=== PATIENT | female | born 1940 | race Caucasian/White ===

== ENCOUNTER 2020-07-12 08:34 | Day surgery (SDC) | payer MEDICARE ==
[~2020-07-12 08:34] MED LIST: Acetaminophen 325 MG Tab PO PRN; Cataract Ophth Solution EYELF ONE; Moxifloxacin 0.5% Ophth Soln 3 ML Bottle EYELF ONE; Ondansetron 4 MG/2 ML SDV IVPUSH PRN; Phenylephrine 10% Ophth Soln 5 ML Bot EYELF ONE; Phenylephrine 10% Ophth Soln 5 ML Bot EYELF PRN; Povidone-Iodine 5% Sterile Ophth Soln 30 ML Bottle EYELF ONE; Proparacaine 0.5% Ophth Soln 15 ML Bottle EYELF ONE; Sodium Chloride 0.9% 10 ML Syringe FLUSH PRN; Timolol Maleate 0.5% Ophth Soln 5 ML Bottle EYELF ONE; Tropicamide 1% Ophth Soln 15 ML Bottle EYELF ONE
[2020-07-12] MEDS ORDERED: Dexamethasone 4 MG/ML SDV IV ONE (08:35)
[2020-07-12] MEDS ORDERED: Sodium Chloride 0.9% 10 ML Syringe IV ONE (08:35)
[2020-07-12] MEDS ORDERED: Midazolam 1 MG/ML 2 ML SDV IV ONE (08:35)
[2020-07-12] MEDS ORDERED: Tetracaine HCl/PF 0.5% 4 ML Bottle EYELF ONE (09:38)
[2020-07-12] MEDS ORDERED: Lidocaine 1% 30 ML SDV ONE (09:38)
[2020-07-12] MEDS ORDERED: Povidone-Iodine 5% Sterile Ophth Soln 30 ML Bottle EYELF ONE (09:38)
[2020-07-12] MEDS ORDERED: Diclofenac Sodium 0.1% Ophth Soln 5 ML Bottle EYELF ONE (09:39)
[2020-07-12] MEDS ORDERED: Apraclonidine 0.5% Ophth Soln 5 ML Bot EYELF ONE (09:39)
[2020-07-12] MEDS ORDERED: Vancomycin 500 MG SDV EYELF ONE (09:40)
[2020-07-12] MEDS ORDERED: Dexamethasone 4 MG/ML SDV IOCULAR ONE (09:40)
[2020-07-12] MEDS ORDERED: Dexamethasone/Neomycin/Polymyxin B Ophth Oint 3.5 GM Tube EYELF ONE (09:40)
[2020-07-12] MEDS ORDERED: Balanced Salt Solution Ophth Irrig 500 ML Bottle IOCULAR ONE (09:40)
[2020-07-12] MEDS ORDERED: Chondroitin Sulfate/Hyaluronate Sodium Ophth Inj 0.75 ML Syringe EYELF ONE (09:40)
--- NOTE | 2020-07-12 11:58 | OR ---
DATE: 07/12/2020 PREOPERATIVE DIAGNOSIS: Visually significant mixed cataract, left eye. POSTOPERATIVE DIAGNOSIS: Visually significant mixed cataract, left eye. PROCEDURE: Extracapsular cataract extraction with intraocular lens implant, left eye. ANESTHESIA: Topical/local MAC. COMPLICATIONS: None. INDICATION: Ms. Young was seen in the clinic with complaints of blurred vision. Examination revealed visually significant mixed cataract. I explained options, offered cataract surgery, and I explained risks, including, but not limited to, infection, retinal detachment, loss of vision, need for additional surgery, and risks associated with anesthesia. We discussed implant options. She has requested a monofocal implant. She understands that she will likely require glasses for some activities following surgery. OPERATIVE DESCRIPTION: After informed consent was obtained and the risks, benefits, and alternatives were explained, the patient was brought to the operative suite and topical anesthesia was administered. The patient was then prepped and draped in the sterile fashion and attention was placed on the left eye. A sterile lid speculum was placed into the left eye to allow operative exposure. A full-thickness paracentesis was made in the temporal portion of the operative eye. Preservative-free lidocaine 0.1 mL was injected into the anterior chamber followed by viscoelastic. A full-thickness corneal incision was then made into the anterior chamber. A bent needle cystotome was used to create a small ritu in the anterior capsule. The capsulorrhexis forceps was then used to create a 360-degree curvilinear capsulorrhexis. The nucleus was then removed using a phacoemulsification handpiece and the remaining cortical material was then removed with irrigation and aspiration handpiece. Following removal of the cortical material, the capsular bag was then inspected and noted to be free of any holes or tears. Viscoelastic was then injected into the capsular bag and the intraocular lens was inserted into the capsular bag. The viscoelastic material was then removed from both the anterior and posterior chambers and from behind the IOL. The lens and capsular bag were then reinspected. The IOL was well centered and the capsular bag intact. The wound and paracentesis sites were inspected and hydrated with balanced saline solution. Both were found to be self- sealing. The intraocular pressure was assessed digitally and found to be within normal range. A good red reflex was noted at the completion of the procedure. No complications occurred during the operation. At the completion of the procedure, Maxitrol, Voltaren, and Iopidine drops were placed into the operative eye. A sterile eye shield was placed over the operative eye and the patient was transported to the postoperative recovery area having tolerated the procedure well. Postoperative instructions were given along with a postoperative appointment. The patient was advised to call with any questions or concerns. [facility] /[id number]
== END 2020-07-12 10:51 | disposition home or self-care (01) ==
LOC: DL.SDS 08:34
PROVIDERS: ATTEND Ophthalmology
DX: H25.813 Combined forms of age-related cataract, bilateral (principal); I10 Essential (primary) hypertension; F32.9 Major depressive disorder, single episode, unspecified; F41.9 Anxiety disorder, unspecified; F17.210 Nicotine dependence, cigarettes, uncomplicated; Z79.899 Other long term (current) drug therapy; Z88.8 Allergy status to other drugs, medicaments and biological substances; Z79.82 Long term (current) use of aspirin; Z79.890 Hormone replacement therapy
CPT/HCPCS: 00142; 66984; A9270; J1100; J2001; J2250; J3370; V2632

== ENCOUNTER 2020-07-19 06:58 | Day surgery (SDC) | payer MEDICARE ==
[2020-07-19] MEDS ORDERED: Dexamethasone 4 MG/ML SDV IV ONE (06:59)
[2020-07-19] MEDS ORDERED: Sodium Chloride 0.9% 10 ML Syringe IV ONE (06:59)
[2020-07-19] MEDS ORDERED: Midazolam 1 MG/ML 2 ML SDV IV ONE (06:59)
[2020-07-19] MEDS ORDERED: Tropicamide 1% Ophth Soln 15 ML Bottle EYERT ONE (07:00)
[2020-07-19] MEDS ORDERED: Timolol Maleate 0.5% Ophth Soln 5 ML Bottle EYERT ONE (07:00)
[2020-07-19] MEDS ORDERED: Phenylephrine 10% Ophth Soln 5 ML Bot EYERT ONE (07:00)
[2020-07-19] MEDS ORDERED: Ondansetron 4 MG/2 ML SDV IVPUSH PRN (07:00)
[2020-07-19] MEDS ORDERED: Acetaminophen 325 MG Tab PO PRN (07:00)
[2020-07-19] MEDS ORDERED: Povidone-Iodine 5% Sterile Ophth Soln 30 ML Bottle EYERT ONE ×2 (07:00→08:24)
[2020-07-19] MEDS ORDERED: Cataract Ophth Solution EYERT ONE (07:00)
[2020-07-19] MEDS ORDERED: Phenylephrine 10% Ophth Soln 5 ML Bot EYERT PRN (07:00)
[2020-07-19] MEDS ORDERED: Sodium Chloride 0.9% 10 ML Syringe FLUSH PRN (07:00)
[2020-07-19] MEDS ORDERED: Moxifloxacin 0.5% Ophth Soln 3 ML Bottle EYERT ONE (07:00)
[2020-07-19] MEDS ORDERED: Proparacaine 0.5% Ophth Soln 15 ML Bottle EYERT ONE (07:00)
[2020-07-19] MEDS ORDERED: Tetracaine HCl/PF 0.5% 4 ML Bottle EYERT ONE (08:23)
[2020-07-19] MEDS ORDERED: Diclofenac Sodium 0.1% Ophth Soln 5 ML Bottle EYERT ONE (08:24)
[2020-07-19] MEDS ORDERED: Lidocaine 1% 30 ML SDV ONE (08:24)
[2020-07-19] MEDS ORDERED: Apraclonidine 0.5% Ophth Soln 5 ML Bot EYERT ONE (08:24)
[2020-07-19] MEDS ORDERED: Dexamethasone/Neomycin/Polymyxin B Ophth Oint 3.5 GM Tube EYERT ONE (08:24)
[2020-07-19] MEDS ORDERED: Chondroitin Sulfate/Hyaluronate Sodium Ophth Inj 0.75 ML Syringe EYERT ONE (08:25)
[2020-07-19] MEDS ORDERED: Balanced Salt Solution Ophth Irrig 500 ML Bottle IOCULAR ONE (08:25)
[2020-07-19] MEDS ORDERED: Vancomycin 500 MG SDV EYERT ONE (08:25)
--- NOTE | 2020-07-20 08:41 | OR ---
DATE: 07/19/2020 PREOPERATIVE DIAGNOSIS: Visually significant mixed cataract, right eye. POSTOPERATIVE DIAGNOSIS: Visually significant mixed cataract, right eye. PROCEDURE: Extracapsular cataract extraction with intraocular lens implant, right eye. ANESTHESIA: Topical/local MAC. COMPLICATIONS: None. INDICATION: Ms. Young was seen in the clinic. She has complained of a slow progressive decrease in vision. Examination revealed visually significant cataract. I explained options, offered cataract surgery, and I explained risks, including, but not limited to, infection, retinal detachment, loss of vision, need for additional surgery, and risks associated with anesthesia, amongst others. We discussed implant options. She has requested a monofocal implant. She is comfortable wearing glasses following surgery if necessary. OPERATIVE DESCRIPTION: After informed consent was obtained and the risks, benefits, and alternatives were explained, the patient was brought to the operative suite and topical anesthesia was administered. The patient was then prepped and draped in the sterile fashion and attention was placed on the right eye. A sterile lid speculum was placed into the right eye to allow operative exposure. A full-thickness paracentesis was made in the temporal portion of the operative eye. Preservative-free lidocaine 0.1 mL was injected into the anterior chamber followed by viscoelastic. A full-thickness corneal incision was then made into the anterior chamber. A bent needle cystotome was used to create a small ritu in the anterior capsule. The capsulorrhexis forceps was then used to create a 360-degree curvilinear capsulorrhexis. The nucleus was then removed using a phacoemulsification handpiece and the remaining cortical material was then removed with irrigation and aspiration handpiece. Following removal of the cortical material, the capsular bag was then inspected and noted to be free of any holes or tears. Viscoelastic was then injected into the capsular bag and the intraocular lens was inserted into the capsular bag. The viscoelastic material was then removed from both the anterior and posterior chambers and from behind the IOL. The lens and capsular bag were then reinspected. The IOL was well centered and the capsular bag intact. The wound and paracentesis sites were inspected and hydrated with balanced saline solution. Both were found to be self- sealing. The intraocular pressure was assessed digitally and found to be within normal range. A good red reflex was noted at the completion of the procedure. No complications occurred during the operation. At the completion of the procedure, Maxitrol, Voltaren, and Iopidine drops were placed into the operative eye. A sterile eye shield was placed over the operative eye and the patient was transported to the postoperative recovery area having tolerated the procedure well. Postoperative instructions were given along with a postoperative appointment. The patient was advised to call with any questions or concerns. [facility] /[id number]
== END 2020-07-19 09:40 | disposition home or self-care (01) ==
LOC: DL.SDS 06:58
PROVIDERS: ATTEND Ophthalmology
DX: H25.811 Combined forms of age-related cataract, right eye (principal); I10 Essential (primary) hypertension; F32.9 Major depressive disorder, single episode, unspecified; F41.9 Anxiety disorder, unspecified; F17.210 Nicotine dependence, cigarettes, uncomplicated; Z79.899 Other long term (current) drug therapy; Z88.8 Allergy status to other drugs, medicaments and biological substances; Z79.890 Hormone replacement therapy; Z79.82 Long term (current) use of aspirin
CPT/HCPCS: A9270-GY; J1100; J2001; J2250; J3370; V2632

== ENCOUNTER 2022-01-10 16:14 | Emergency (ER) | payer MEDICARE, OTHER ==
[2022-01-10 18:34] LABS: ANION GAP 10.9 mEq/L (7-13); CHLORIDE,CL 100 mmol/L (98-107); SODIUM,NA 137 mmol/L (136-145)
== END 2022-01-10 21:10 | disposition home or self-care (01) ==
LOC: DL.ED 16:14
DX: G20 Parkinson's disease (principal); T42.8X5A Adverse effect of antiparkinsonism drugs and other central muscle-tone depressants, initial encounter; I10 Essential (primary) hypertension; E03.9 Hypothyroidism, unspecified; Z88.8 Allergy status to other drugs, medicaments and biological substances; Z79.82 Long term (current) use of aspirin; Z79.899 Other long term (current) drug therapy; Z20.822 Contact with and (suspected) exposure to COVID-19
CPT/HCPCS: 36415; 70450; 71045; 80053; 81001; 83605; 83880; 84484; 85025; 85610; 87040; 93005; 99284; U0002; 93010

== ENCOUNTER 2022-01-18 12:32 | Emergency (ER) | payer MEDICARE, OTHER ==
[2022-01-18 13:20] LABS: AMPHETAMINES,URINE NEGATIVE (NEGATIVE); BARBITURATES,URINE NEGATIVE (NEGATIVE); BENZODIAZEPINE,URINE POSITIVE (NEGATIVE); MDMA (ECSTASY), URINE NEGATIVE (NEGATIVE); METHADONE,URINE NEGATIVE (NEGATIVE); METHAMPHETAMINES,URINE NEGATIVE (NEGATIVE); OPIATES,URINE NEGATIVE (NEGATIVE); OXYCODONE,URINE NEGATIVE (NEGATIVE); PHENCYCLIDINE,URINE NEGATIVE (NEGATIVE); TCA,URINE NEGATIVE (NEGATIVE)
[2022-01-18 13:43] LABS: CORONAVIRUS COVID-19 NAA NEGATIVE (NEGATIVE)
[2022-01-18 14:00] LABS: CHLORIDE,CL 101 mmol/L (98-107); SODIUM,NA 138 mmol/L (136-145)
[2022-01-18] MEDS: Sulfamethoxazole/Trimethoprim 800-160 MG Tab PO ONE (15:50)
== END 2022-01-18 16:15 | disposition home or self-care (01) ==
LOC: DL.ED 12:32
DX: G20 Parkinson's disease (principal); N30.01 Acute cystitis with hematuria; T44.995A Adverse effect of other drug primarily affecting the autonomic nervous system, initial encounter; I10 Essential (primary) hypertension; E03.9 Hypothyroidism, unspecified; Z88.8 Allergy status to other drugs, medicaments and biological substances; Z79.82 Long term (current) use of aspirin; Z79.899 Other long term (current) drug therapy; Z20.822 Contact with and (suspected) exposure to COVID-19
CPT/HCPCS: 0240U; 36415; 80053; 80305; 80307; 81001; 83605; 83735; 84484; 85025; 86140; 93005; 93010; 99284; A9270

== ENCOUNTER 2022-02-04 10:23 | Emergency (ER) | payer MEDICARE, OTHER ==
[2022-02-04 11:46] LABS: ANION GAP 11.6 mEq/L (7-13); CHLORIDE,CL 104 mmol/L (98-107); ESTIMATED GFR > 60; SODIUM,NA 137 mmol/L (136-145)
[2022-02-04] MEDS ORDERED: Iopamidol 612 MG/ML 100 ML Bottle IVPUSH ONE (11:47)
[2022-02-04] MEDS ORDERED: cefTRIAXone 1 GM in Sodium Chloride 0.9% 50 ML IV ONE (13:28)
[2022-02-04] MEDS ORDERED: Ketorolac 30 MG/ML SDV IVPUSH ONE (13:28)
== END 2022-02-04 14:22 | disposition home or self-care (01) ==
LOC: DL.ED 10:23
DX: K11.20 Sialoadenitis, unspecified (principal); I10 Essential (primary) hypertension; E03.9 Hypothyroidism, unspecified; Z88.8 Allergy status to other drugs, medicaments and biological substances; Z79.82 Long term (current) use of aspirin; Z79.899 Other long term (current) drug therapy
CPT/HCPCS: 36415; 70491; 80053; 83605; 85025; 87040; 96365; 96375; 99283; 99284; J0696; J1885; Q9967

== ENCOUNTER 2025-05-03 09:13 | Emergency (ER) | payer MEDICARE, OTHER ==
[2025-05-03] MEDS: fentaNYL 100 MCG/2 ML SDV IVPUSH PRN (09:18)
[2025-05-03] MEDS: Ketorolac 30 MG/ML SDV IVPUSH ONE (09:18)
[2025-05-03 09:19] LABS: BASOPHILS PERCENT AUTO 0.7 % (0.0-1.0); EOSINOPHILS PERCENT AUTO 1.6 % (1.0-3.0); HEMATOCRIT 40.8 % (37.0-47.0); LYMPHOCYTES PERCENT AUTO 19.4 % (20.5-50.1); MEAN CORPUSCULAR HEMOGLOBIN 31.7 pg (27.0-34.0); MEAN CORPUSCULAR HGB CONC 31.9 g/dL (33.0-35.0); MEAN CORPUSCULAR VOLUME 99.5 fL (80-100); NEUTROPHILS PERCENT AUTO 70.3 % (42.2-75.2); PLATELET COUNT,PLT 204 10^3/uL (150-450); WHITE BLOOD CELL COUNT,WBC 7.5 10^3/uL (5.0-10.0)
[2025-05-03 09:42] LABS: A/G RATIO 0.76; ALANINE AMINOTRANSFERASE,ALT 24 U/L (14-59); ALBUMIN 2.8 g/dL (3.4-5.0); ALKALINE PHOSPHATASE 92 U/L (46-116); ANION GAP 9.7 mEq/L (7-13); ASPARTATE AMNIOTRANSFERASE,AST 13 U/L (15-37); BILIRUBIN TOTAL 0.7 mg/dL (0.2-1.0); BLOOD UREA NITROGEN,BUN 29 mg/dL (7-18); BUN/CREATININE RATIO 16.8 (No establ ref range); CARBON DIOXIDE,CO2 32 mmol/L (21-32); CHLORIDE,CL 104 mmol/L (98-107); CREATININE 1.73 mg/dL (0.55-1.02); ESTIMATED GFR 29 mL/min (>=60); GLUCOSE RANDOM 89 mg/dL (70-99); MAGNESIUM 2.2 mg/dL (1.8-2.4); POTASSIUM,K 4.7 mmol/L (3.5-5.1); PROTEIN TOTAL,TP 6.5 g/dL (6.4-8.2); SODIUM,NA 141 mmol/L (136-145)
== END 2025-05-03 11:10 ==
LOC: DL.ED 09:13
DX: S72.002A Fracture of unspecified part of neck of left femur, initial encounter for closed fracture (principal); I10 Essential (primary) hypertension; E03.9 Hypothyroidism, unspecified; Z88.8 Allergy status to other drugs, medicaments and biological substances; Z79.82 Long term (current) use of aspirin; Z79.890 Hormone replacement therapy; Z79.899 Other long term (current) drug therapy; W19.XXXA Unspecified fall, initial encounter; Y92.009 Unspecified place in unspecified non-institutional (private) residence as the place of occurrence of the external cause
CPT/HCPCS: 36415; 72170; 80053; 83735; 84484; 85025; 96374; 96375; 99284; 99285-25; J1885; J3010

== ENCOUNTER 2025-05-06 10:15 | Inpatient (IN) | payer MEDICARE, OTHER ==
[2025-05-06 17:20] LABS: BASOPHILS PERCENT AUTO 0.4 % (0.0-1.0); EOSINOPHILS PERCENT AUTO 1.9 % (1.0-3.0); LYMPHOCYTES PERCENT AUTO 13.9 % (20.5-50.1); MONOCYTES PERCENT AUTO 10.3 % (2-8); NEUTROPHILS PERCENT AUTO 73.5 % (42.2-75.2); PLATELET COUNT,PLT 198 10^3/uL (150-450); RED BLOOD CELL COUNT 3.16 10^6/uL (4.2-5.4); WHITE BLOOD CELL COUNT,WBC 10.3 10^3/uL (5.0-10.0)
[2025-05-06 17:43] LABS: BLOOD UREA NITROGEN,BUN 25.0 mg/dL (7-18); CARBON DIOXIDE,CO2 30.0 mmol/L (21-32); CHLORIDE,CL 102.0 mmol/L (98-107); CREATININE 1.15 mg/dL (0.55-1.02); EST CRCL DRUG DOSING (CG) 29.59 mL/min; GLUCOSE RANDOM 100.0 mg/dL (70-99); PHOSPHORUS 2.7 mg/dL (2.6-4.7); POTASSIUM,K 4.6 mmol/L (3.5-5.1); SODIUM,NA 138.0 mmol/L (136-145)
[2025-05-06 17:44] LABS: ESTIMATED GFR 47.0 mL/min (>=60)
[2025-05-06 17:56] LABS: INR 0.9 (0.9-1.2)
[2025-05-06 18:54] LABS: FOLIC ACID 4.8 ng/mL (8.6-58.9); T4 FREE 1.51 ng/dL (0.76-1.46); TSH ULTRASENSITIVE 3.3 uIU/mL (0.36-3.74)
[2025-05-06] MEDS ORDERED: VENLAFAXINE HCL 50 MG PO SCH (21:00)
[2025-05-07] MEDS: Tiotropium Bromide 4 GM Inhalation Spray (2.5mcg/1 dose; 10 doses) INH SCH (07:19)
[2025-05-07] MEDS: Formoterol/Mometasone 100-5 MCG 8.8 GM Inhaler INH SCH (07:20)
[2025-05-07] MEDS: buPROPion 150 MG Tab.ER PO SCH (08:41)
[2025-05-07] MEDS: Vitamin B Complex Cap PO SCH (08:41)
[2025-05-07] MEDS: Venlafaxine 37.5 MG Cap.ER PO SCH (08:45)
[2025-05-07] MEDS: Cholecalciferol (Vitamin D3) 25 MCG Tab PO SCH (08:46)
[2025-05-07] MEDS ORDERED: MEMANTINE HCL 21 MG PO SCH (09:00)
[2025-05-07] MEDS: Lactulose Soln 10 GM/15 ML 30 ML UD Cup PO ONE (11:56)
[2025-05-08 06:23] LABS: BASOPHILS PERCENT AUTO 0.4 % (0.0-1.0); EOSINOPHILS PERCENT AUTO 2.0 % (1.0-3.0); LYMPHOCYTES PERCENT AUTO 12.4 % (20.5-50.1); MONOCYTES PERCENT AUTO 12.0 % (2-8); NEUTROPHILS PERCENT AUTO 73.2 % (42.2-75.2); PLATELET COUNT,PLT 195 10^3/uL (150-450); RED BLOOD CELL COUNT 3.15 10^6/uL (4.2-5.4); WHITE BLOOD CELL COUNT,WBC 8.5 10^3/uL (5.0-10.0)
[2025-05-08 06:42] LABS: BLOOD UREA NITROGEN,BUN 27.0 mg/dL (7-18); CARBON DIOXIDE,CO2 31.0 mmol/L (21-32); CHLORIDE,CL 103.0 mmol/L (98-107); CREATININE 1.45 mg/dL (0.55-1.02); EST CRCL DRUG DOSING (CG) 23.46 mL/min; GLUCOSE RANDOM 102.0 mg/dL (70-99); POTASSIUM,K 4.3 mmol/L (3.5-5.1); SODIUM,NA 139.0 mmol/L (136-145)
[2025-05-08 06:43] LABS: ESTIMATED GFR 35.0 mL/min (>=60)
[2025-05-08] MEDS: Furosemide 40 MG/4 ML VIAL IVPUSH ONE (09:04)
[2025-05-08 09:43] LABS: LACTIC ACID 1.2 mmol/L (0.4-2.0)
[2025-05-08] MEDS: Lactulose Soln 10 GM/15 ML 30 ML UD Cup PO ONE (11:16)
[2025-05-08] MEDS: Iopamidol 755 Mg/ML 100 ML Bottle IVPUSH ONE (18:21)
[2025-05-09 06:42] LABS: BASOPHILS PERCENT AUTO 0.1 % (0.0-1.0); EOSINOPHILS PERCENT AUTO 1.0 % (1.0-3.0); LYMPHOCYTES PERCENT AUTO 9.4 % (20.5-50.1); MONOCYTES PERCENT AUTO 15.3 % (2-8); NEUTROPHILS PERCENT AUTO 74.2 % (42.2-75.2); PLATELET COUNT,PLT 200 10^3/uL (150-450); RED BLOOD CELL COUNT 3.21 10^6/uL (4.2-5.4); WHITE BLOOD CELL COUNT,WBC 9.2 10^3/uL (5.0-10.0)
[2025-05-09 06:49] LABS: BLOOD UREA NITROGEN,BUN 27.0 mg/dL (7-18); CARBON DIOXIDE,CO2 29.0 mmol/L (21-32); CHLORIDE,CL 102.0 mmol/L (98-107); CREATININE 1.6 mg/dL (0.55-1.02); EST CRCL DRUG DOSING (CG) 21.26 mL/min; GLUCOSE RANDOM 99.0 mg/dL (70-99); POTASSIUM,K 4.3 mmol/L (3.5-5.1); SODIUM,NA 140.0 mmol/L (136-145)
[2025-05-09 06:52] LABS: ESTIMATED GFR 31.0 mL/min (>=60)
[2025-05-09] MEDS: Omeprazole 20 MG Cap.CR PO SCH (15:11)
[2025-05-15] MEDS: Acetaminophen/HYDROcodone 325-5 MG Tab PO PRN (12:01)
[2025-05-16 06:44] LABS: PLATELET COUNT,PLT 388 10^3/uL (150-450); RED BLOOD CELL COUNT 2.78 10^6/uL (4.2-5.4); WHITE BLOOD CELL COUNT,WBC 10.0 10^3/uL (5.0-10.0)
[2025-05-16 06:52] LABS: LYMPHOCYTES PERCENT AUTO 10.9 % (20.5-50.1); NEUTROPHILS PERCENT AUTO 79.7 % (42.2-75.2)
[2025-05-16 06:53] LABS: BASOPHILS PERCENT AUTO 0.4 % (0.0-1.0); EOSINOPHILS PERCENT AUTO 2.0 % (1.0-3.0); MONOCYTES PERCENT AUTO 7.0 % (2-8)
[2025-05-16 07:28] LABS: ALANINE AMINOTRANSFERASE,ALT 17.0 U/L (14-59); ASPARTATE AMNIOTRANSFERASE,AST 17.0 U/L (15-37); BILIRUBIN TOTAL 0.5 mg/dL (0.2-1.0); BLOOD UREA NITROGEN,BUN 24.0 mg/dL (7-18); CARBON DIOXIDE,CO2 31.0 mmol/L (21-32); CHLORIDE,CL 105.0 mmol/L (98-107); CREATININE 1.43 mg/dL (0.55-1.02); EST CRCL DRUG DOSING (CG) 23.79 mL/min; GLUCOSE RANDOM 89.0 mg/dL (70-99); POTASSIUM,K 3.8 mmol/L (3.5-5.1); PROTEIN TOTAL,TP 5.8 g/dL (6.4-8.2); SODIUM,NA 142.0 mmol/L (136-145)
[2025-05-16 07:29] LABS: A/G RATIO 0.53; BAND PERCENT MAN 2 %; EOSINOPHILS PERCENT MAN 2 % (1-3); ESTIMATED GFR 36.0 mL/min (>=60); LYMPHOCYTES PERCENT MAN 10 % (20-50); MONOCYTES PERCENT MAN 6 % (2-8); SEG NEUTROPHILS PERCENT MAN 80 % (42-75)
[2025-05-19 20:20] LABS: A/G RATIO 0.54; ALANINE AMINOTRANSFERASE,ALT 8.0 U/L (14-59); ASPARTATE AMNIOTRANSFERASE,AST 13.0 U/L (15-37); BILIRUBIN TOTAL 0.4 mg/dL (0.2-1.0); BLOOD UREA NITROGEN,BUN 29.0 mg/dL (7-18); CARBON DIOXIDE,CO2 31.0 mmol/L (21-32); CHLORIDE,CL 106.0 mmol/L (98-107); CREATININE 1.51 mg/dL (0.55-1.02); EST CRCL DRUG DOSING (CG) 22.53 mL/min; ESTIMATED GFR 34.0 mL/min (>=60); GLUCOSE RANDOM 125.0 mg/dL (70-99); POTASSIUM,K 3.9 mmol/L (3.5-5.1); PROTEIN TOTAL,TP 6.0 g/dL (6.4-8.2); SODIUM,NA 143.0 mmol/L (136-145)
[2025-05-23 06:38] LABS: BASOPHILS PERCENT AUTO 0.6 % (0.0-1.0); EOSINOPHILS PERCENT AUTO 2.9 % (1.0-3.0); LYMPHOCYTES PERCENT AUTO 16.6 % (20.5-50.1); MONOCYTES PERCENT AUTO 9.5 % (2-8); NEUTROPHILS PERCENT AUTO 70.4 % (42.2-75.2); PLATELET COUNT,PLT 435 10^3/uL (150-450); RED BLOOD CELL COUNT 3.11 10^6/uL (4.2-5.4); WHITE BLOOD CELL COUNT,WBC 6.9 10^3/uL (5.0-10.0)
[2025-05-23 07:00] LABS: ALANINE AMINOTRANSFERASE,ALT 10.0 U/L (14-59); ASPARTATE AMNIOTRANSFERASE,AST 12.0 U/L (15-37); BILIRUBIN TOTAL 0.4 mg/dL (0.2-1.0); BLOOD UREA NITROGEN,BUN 20.0 mg/dL (7-18); CARBON DIOXIDE,CO2 30.0 mmol/L (21-32); CHLORIDE,CL 108.0 mmol/L (98-107); CREATININE 1.42 mg/dL (0.55-1.02); EST CRCL DRUG DOSING (CG) 23.96 mL/min; GLUCOSE RANDOM 84.0 mg/dL (70-99); POTASSIUM,K 4.4 mmol/L (3.5-5.1); PROTEIN TOTAL,TP 5.9 g/dL (6.4-8.2); SODIUM,NA 143.0 mmol/L (136-145)
[2025-05-23 07:09] LABS: A/G RATIO 0.59; ESTIMATED GFR 36.0 mL/min (>=60)
== END 2025-05-24 10:42 | DRG 947 ==
LOC: DL.MS 15:16
PROVIDERS: ADMIT Internal Medicine; ATTEND Internal Medicine
DX: R53.81 Other malaise (principal); J69.0 Pneumonitis due to inhalation of food and vomit; N18.4 Chronic kidney disease, stage 4 (severe); I13.0 Hypertensive heart and chronic kidney disease with heart failure and stage 1 through stage 4 chronic kidney disease, or unspecified chronic kidney disease; E44.0 Moderate protein-calorie malnutrition; G20.A1 Parkinson's disease without dyskinesia, without mention of fluctuations; I48.91 Unspecified atrial fibrillation; F41.9 Anxiety disorder, unspecified; I50.9 Heart failure, unspecified; J44.9 Chronic obstructive pulmonary disease, unspecified; M81.0 Age-related osteoporosis without current pathological fracture; F43.10 Post-traumatic stress disorder, unspecified; E03.9 Hypothyroidism, unspecified; K59.09 Other constipation; G89.29 Other chronic pain; Z96.642 Presence of left artificial hip joint; F32.9 Major depressive disorder, single episode, unspecified; G47.00 Insomnia, unspecified; Z88.8 Allergy status to other drugs, medicaments and biological substances; Z79.82 Long term (current) use of aspirin; Z85.818 Personal history of malignant neoplasm of other sites of lip, oral cavity, and pharynx; Z98.49 Cataract extraction status, unspecified eye; Z90.89 Acquired absence of other organs; Z91.81 History of falling; Z68.22 Body mass index [BMI] 22.0-22.9, adult; Z79.899 Other long term (current) drug therapy; Z79.890 Hormone replacement therapy
CPT/HCPCS: 36415; 71045; 71275; 80048; 80053; 82607; 82746; 83605; 83735; 83880; 84100; 84145; 84439; 84443; 84484; 85025; 85610; 87070; 87186; 87205; 93005; 94060; 94664; 97110-GO; 97110-GP; 97161-GP; 97165-GO; 97530-GO; 97530-GP; 97535-GO; A9270-GY; J1650; J1920; J1938; J2543; J3490; Q9967; U0002

== ENCOUNTER 2025-06-02 06:20 | Inpatient (IN) | payer MEDICARE, OTHER ==
[2025-06-02] MEDS ORDERED: Sodium Chloride 0.9% 10 ML Syringe FLUSH PRN (06:23)
[2025-06-02 06:48] LABS: BASOPHILS PERCENT AUTO 0.2 % (0.0-1.0); EOSINOPHILS PERCENT AUTO 0.5 % (1.0-3.0); LYMPHOCYTES PERCENT AUTO 4.3 % (20.5-50.1); MONOCYTES PERCENT AUTO 7.9 % (2-8); NEUTROPHILS PERCENT AUTO 87.1 % (42.2-75.2); PLATELET COUNT,PLT 267 10^3/uL (150-450); RED BLOOD CELL COUNT 3.35 10^6/uL (4.2-5.4); WHITE BLOOD CELL COUNT,WBC 13.9 10^3/uL (5.0-10.0)
[2025-06-02] MEDS: Iopamidol 612 MG/ML 100 ML Bottle IVPUSH ONE (06:49)
[2025-06-02] MEDS: Metoprolol Tartrate 5 MG/5 ML SDV IVPUSH ONE (06:58)
[2025-06-02 07:08] LABS: INR 1.0 (0.9-1.2); PTT,PARTIAL THROMBOPLSTIN TIME 24.1 SEC (22.0-34.0)
[2025-06-02 07:10] LABS: ALANINE AMINOTRANSFERASE,ALT 14.0 U/L (14-59); ASPARTATE AMNIOTRANSFERASE,AST 16.0 U/L (15-37); BILIRUBIN TOTAL 0.9 mg/dL (0.2-1.0); BLOOD UREA NITROGEN,BUN 19.0 mg/dL (7-18); CARBON DIOXIDE,CO2 31.0 mmol/L (21-32); CHLORIDE,CL 102.0 mmol/L (98-107); CREATININE 1.49 mg/dL (0.55-1.02); EST CRCL DRUG DOSING (CG) 24.71 mL/min; GLUCOSE RANDOM 121.0 mg/dL (70-99); POTASSIUM,K 4.2 mmol/L (3.5-5.1); PROTEIN TOTAL,TP 6.7 g/dL (6.4-8.2); SODIUM,NA 138.0 mmol/L (136-145)
[2025-06-02 07:11] LABS: A/G RATIO 0.68; ESTIMATED GFR 34.0 mL/min (>=60)
[2025-06-02 07:12] LABS: LACTIC ACID 1.1 mmol/L (0.4-2.0)
[2025-06-02 07:18] LABS: D-DIMER QUANTITATIVE 1740.0 ng/mL (0-400)
[2025-06-02 07:26] LABS: B-TYPE NATRIURETIC PEPTIDE,BNP 481.0 pg/ml (0-100)
[2025-06-02] MEDS: Iopamidol 755 Mg/ML 100 ML Bottle IVPUSH ONE (08:44)
[2025-06-02] MEDS: methylPREDNISolone Sodium Succinate 40 MG/1 ML SDV IVPUSH ONE (10:12)
[2025-06-02] MEDS: Furosemide 100 MG/10 ML SDV IVPUSH ONE (10:14)
[2025-06-02 10:47] LABS: BICARBONATE,ARTERIAL 27.4 mmol/L (22-26); O2 DELIVERY DEVICE SIMPLE MASK; O2 SATURATION ARTERIAL 96 % (95-100); PCO2 ARTERIAL 60 mmHg (35-45); PH,ARTERIAL 7.28 (7.35-7.45); PO2 ARTERIAL 101 mmHg (70-100)
[2025-06-02 10:48] LABS: BASE EXCESS ARTERIAL 1 mmol/L ((-2)-(+3))
[2025-06-02 12:08] LABS: APPEARANCE,URINE CLEAR (CLEAR); GLUCOSE,URINE NEGATIVE (NEGATIVE); OCCULT BLOOD,URINE TRACE-INTACT (NEGATIVE)
[2025-06-02 12:20] LABS: EPITHELIAL CELLS,URINE FEW /HPF (NOT SEEN)
[2025-06-02] MEDS: methylPREDNISolone Sodium Succinate 40 MG/1 ML SDV IVPUSH SCH (13:23)
[2025-06-02] MEDS: Acetylcysteine 20% 200 MG/ML 30 ML Soln SDV INH SCH (15:34)
[2025-06-02] MEDS: Sodium Chloride 0.9% Inhalation Soln 3 ML Neb INH SCH (18:43)
[2025-06-02] MEDS: Heparin Sodium 5,000 Units/ML Vial SUBCUT SCH (20:02)
[2025-06-02] MEDS: Venlafaxine 37.5 MG Cap.ER PO SCH (20:03)
[2025-06-03 06:28] LABS: BASOPHILS PERCENT AUTO 0.2 % (0.0-1.0); EOSINOPHILS PERCENT AUTO 0.0 % (1.0-3.0); LYMPHOCYTES PERCENT AUTO 4.2 % (20.5-50.1); MONOCYTES PERCENT AUTO 3.1 % (2-8); NEUTROPHILS PERCENT AUTO 92.5 % (42.2-75.2); PLATELET COUNT,PLT 209 10^3/uL (150-450); RED BLOOD CELL COUNT 3.62 10^6/uL (4.2-5.4); WHITE BLOOD CELL COUNT,WBC 13.2 10^3/uL (5.0-10.0)
[2025-06-03 06:47] LABS: BLOOD UREA NITROGEN,BUN 26.0 mg/dL (7-18); CARBON DIOXIDE,CO2 33.0 mmol/L (21-32); CHLORIDE,CL 100.0 mmol/L (98-107); CREATININE 1.71 mg/dL (0.55-1.02); EST CRCL DRUG DOSING (CG) 19.02 mL/min; GLUCOSE RANDOM 146.0 mg/dL (70-99); PHOSPHORUS 4.3 mg/dL (2.6-4.7); POTASSIUM,K 4.1 mmol/L (3.5-5.1); SODIUM,NA 140.0 mmol/L (136-145)
[2025-06-03 06:48] LABS: ESTIMATED GFR 29.0 mL/min (>=60)
[2025-06-03] MEDS: Venlafaxine 37.5 MG Cap.ER PO SCH (10:22)
[2025-06-03] MEDS: buPROPion 150 MG Tab.ER PO SCH (10:22)
[2025-06-03 11:13] LABS: BODY FLUID TYPE PLEURAL FLUID
[2025-06-03 11:50] LABS: PROTEIN,BODY FLUID 2.4 mg/dL
[2025-06-04 06:07] LABS: BASOPHILS PERCENT AUTO 0.2 % (0.0-1.0); EOSINOPHILS PERCENT AUTO 0.0 % (1.0-3.0); LYMPHOCYTES PERCENT AUTO 3.0 % (20.5-50.1); MONOCYTES PERCENT AUTO 2.2 % (2-8); NEUTROPHILS PERCENT AUTO 94.6 % (42.2-75.2); PLATELET COUNT,PLT 240 10^3/uL (150-450); RED BLOOD CELL COUNT 3.42 10^6/uL (4.2-5.4); WHITE BLOOD CELL COUNT,WBC 15.7 10^3/uL (5.0-10.0)
[2025-06-04 06:16] LABS: BLOOD UREA NITROGEN,BUN 40.0 mg/dL (7-18); CARBON DIOXIDE,CO2 33.0 mmol/L (21-32); CHLORIDE,CL 102.0 mmol/L (98-107); CREATININE 1.77 mg/dL (0.55-1.02); EST CRCL DRUG DOSING (CG) 18.38 mL/min; GLUCOSE RANDOM 140.0 mg/dL (70-99); POTASSIUM,K 4.2 mmol/L (3.5-5.1); SODIUM,NA 140.0 mmol/L (136-145)
[2025-06-04 06:20] LABS: ESTIMATED GFR 28.0 mL/min (>=60)
[2025-06-04 10:30] LABS: IRON,FE 20.0 ug/dL (50-170); PERCENT FE SATURATION 7.8 % (20.0-50.0)
[2025-06-05 06:09] LABS: BASOPHILS PERCENT AUTO 0.3 % (0.0-1.0); EOSINOPHILS PERCENT AUTO 0.0 % (1.0-3.0); LYMPHOCYTES PERCENT AUTO 5.6 % (20.5-50.1); MONOCYTES PERCENT AUTO 4.6 % (2-8); NEUTROPHILS PERCENT AUTO 89.5 % (42.2-75.2); PLATELET COUNT,PLT 229 10^3/uL (150-450); RED BLOOD CELL COUNT 3.16 10^6/uL (4.2-5.4); WHITE BLOOD CELL COUNT,WBC 12.4 10^3/uL (5.0-10.0)
[2025-06-05 06:34] LABS: BLOOD UREA NITROGEN,BUN 41.0 mg/dL (7-18); CARBON DIOXIDE,CO2 31.0 mmol/L (21-32); CHLORIDE,CL 104.0 mmol/L (98-107); CREATININE 1.5 mg/dL (0.55-1.02); EST CRCL DRUG DOSING (CG) 21.69 mL/min; GLUCOSE RANDOM 119.0 mg/dL (70-99); POTASSIUM,K 4.5 mmol/L (3.5-5.1); SODIUM,NA 138.0 mmol/L (136-145)
[2025-06-05 07:05] LABS: ESTIMATED GFR 34.0 mL/min (>=60)
[2025-06-05] MEDS: Furosemide 40 MG/4 ML VIAL IVPUSH ONE (10:55)
[2025-06-05 13:43] LABS: BASO'S 0 /cu mm; EO'S 0 /cu mm; LYMPH'S 275 /cu mm; MONO'S 213 /cu mm; OTHER 163 /cu mm; PMN'S 601 /cu mm
== END 2025-06-06 13:50 | DRG 193 ==
LOC: DL.ED 06:20 → DL.MS 10:27
PROVIDERS: ADMIT Internal Medicine; ATTEND Internal Medicine
PROC: 4A033R1 Measurement of Arterial Saturation, Peripheral, Percutaneous Approach (ICD-10-PCS; principal; 2025-06-02)
PROC: 5A09357 Assistance with Respiratory Ventilation, Less than 24 Consecutive Hours, Continuous Positive Airway Pressure (ICD-10-PCS; 2025-06-02)
PROC: 0T9B70Z Drainage of Bladder with Drainage Device, Via Natural or Artificial Opening (ICD-10-PCS; 2025-06-02)
DX: A41.9 Sepsis, unspecified organism (principal); J15.9 Unspecified bacterial pneumonia; J96.01 Acute respiratory failure with hypoxia; J44.0 Chronic obstructive pulmonary disease with (acute) lower respiratory infection; J44.1 Chronic obstructive pulmonary disease with (acute) exacerbation; J91.8 Pleural effusion in other conditions classified elsewhere; Z66 Do not resuscitate; I11.0 Hypertensive heart disease with heart failure; I48.91 Unspecified atrial fibrillation; M81.0 Age-related osteoporosis without current pathological fracture; F43.10 Post-traumatic stress disorder, unspecified; J43.9 Emphysema, unspecified; G20.A1 Parkinson's disease without dyskinesia, without mention of fluctuations; R13.10 Dysphagia, unspecified; I50.9 Heart failure, unspecified; F41.9 Anxiety disorder, unspecified; F32.A Depression, unspecified; E03.9 Hypothyroidism, unspecified; Z88.8 Allergy status to other drugs, medicaments and biological substances; Z90.49 Acquired absence of other specified parts of digestive tract; Z79.899 Other long term (current) drug therapy; Z98.49 Cataract extraction status, unspecified eye; Z79.82 Long term (current) use of aspirin; Z99.81 Dependence on supplemental oxygen; Z79.890 Hormone replacement therapy; Z90.89 Acquired absence of other organs
CPT/HCPCS: 36415; 71045; 71275; 80053; 82803; 83605; 83735; 83880; 84484; 85025; 85379; 85610; 85730; 93005; 93010; 96365; 96375; 99285 ×2; A9270 ×2; J0456; J0696; J1938; J2270; J2305; J2919; J3490; J7050; Q9967; 36600; 51702; 80048; 81001; 82272; 83540; 83550; 83615; 84100; 84157; 87040; 87070; 88112; 88305; 88341; 88342; 89051; 94640; 94660; 99232; 99233; 99239; J1644; J1920; J7512

== ENCOUNTER 2025-06-15 22:46 | Inpatient (IN) | payer MEDICARE, OTHER ==
[2025-06-15 23:13] LABS: PLATELET COUNT,PLT 272 10^3/uL (150-450); RED BLOOD CELL COUNT 3.78 10^6/uL (4.2-5.4); WHITE BLOOD CELL COUNT,WBC 30.9 10^3/uL (5.0-10.0)
[2025-06-15 23:16] LABS: O2 DELIVERY DEVICE SIMPLE MASK
[2025-06-15 23:22] LABS: BASE EXCESS VENOUS 5.5 mmol/l ((-2)-(+3)); BICARBONATE,VENOUS 31 mmol/l (19-25); O2 SATURATION VENOUS 49.1 % (60-80); PCO2 VENOUS 49 mmHg (41-51); PH,VENOUS 7.41 (7.31-7.41); PO2 VENOUS 38 mmHg (35-42)
[2025-06-15 23:31] LABS: A/G RATIO 0.74; ALANINE AMINOTRANSFERASE,ALT 20 U/L (14-59); ASPARTATE AMNIOTRANSFERASE,AST 17 U/L (15-37); BILIRUBIN TOTAL 1.0 mg/dL (0.2-1.0); BLOOD UREA NITROGEN,BUN 32 mg/dL (7-18); CARBON DIOXIDE,CO2 32 mmol/L (21-32); CHLORIDE,CL 101 mmol/L (98-107); CREATININE 1.40 mg/dL (0.55-1.02); ESTIMATED GFR 37 mL/min (>=60); GLUCOSE RANDOM 127 mg/dL (70-99); POTASSIUM,K 4.9 mmol/L (3.5-5.1); PROTEIN TOTAL,TP 6.8 g/dL (6.4-8.2); SODIUM,NA 138 mmol/L (136-145)
[2025-06-15 23:33] LABS: LACTIC ACID 2.7 mmol/L (0.4-2.0)
[2025-06-15 23:38] LABS: B-TYPE NATRIURETIC PEPTIDE,BNP 108 pg/ml (0-100)
[2025-06-15 23:49] LABS: LYMPHOCYTES PERCENT MAN 6 % (20-50); MONOCYTES PERCENT MAN 2 % (2-8); SEG NEUTROPHILS PERCENT MAN 92 % (42-75)
[2025-06-15] MEDS: Levofloxacin/Dextrose 5%-Water 500 MG in Premix Bag 1 BAG IV ONE (23:50)
[2025-06-16] MEDS: Iopamidol 755 Mg/ML 100 ML Bottle IVPUSH ONE (00:11)
[2025-06-16] MEDS: Diltiazem 25 MG/5 ML SDV IVPUSH ONE (01:00)
[2025-06-16] MEDS: Dexamethasone 4 MG/ML SDV IVPUSH ONE (01:30)
[2025-06-16] MEDS ORDERED: Metoprolol Tartrate 5 MG/5 ML SDV IVPUSH PRN (01:54)
[2025-06-16] MEDS ORDERED: Sennosides/Docusate Sodium 50-8.6 MG Tab PO PRN (01:57)
[2025-06-16] MEDS ORDERED: guaiFENesin/Dextromethorphan 100-10 MG/5 ML Soln 5 ML Cup PO PRN (01:57)
[2025-06-16] MEDS ORDERED: Magnesium Hydroxide 400 MG/5 ML Susp 30 ML Cup PO PRN (01:57)
[2025-06-16] MEDS ORDERED: Ondansetron 4 MG/2 ML SDV IVPUSH PRN (01:57)
[2025-06-16 02:05] LABS: T4 FREE 1.13 ng/dL (0.76-1.46); TSH ULTRASENSITIVE 2.83 uIU/mL (0.36-3.74)
[2025-06-16] MEDS ORDERED: Pharmacy Consult Order SCH (02:15)
[2025-06-16 03:50] LABS: LACTIC ACID 3.2 mmol/L (0.4-2.0)
[2025-06-16] MEDS: Formoterol/Mometasone 100-5 MCG 8.8 GM Inhaler INH SCH (05:57)
[2025-06-16] MEDS: Tiotropium Bromide 4 GM Inhalation Spray (2.5mcg/1 dose; 10 doses) INH SCH (05:58)
[2025-06-16] MEDS ORDERED: Ipratropium 0.02% 0.5 MG/2.5 ML Neb Soln NEB SCH (06:00)
[2025-06-16 06:07] LABS: BASOPHILS PERCENT AUTO 0.1 % (0.0-1.0); EOSINOPHILS PERCENT AUTO 0.0 % (1.0-3.0); LYMPHOCYTES PERCENT AUTO 0.6 % (20.5-50.1); MONOCYTES PERCENT AUTO 2.9 % (2-8); NEUTROPHILS PERCENT AUTO 96.4 % (42.2-75.2); PLATELET COUNT,PLT 221 10^3/uL (150-450); RED BLOOD CELL COUNT 3.20 10^6/uL (4.2-5.4); WHITE BLOOD CELL COUNT,WBC 37.3 10^3/uL (5.0-10.0)
[2025-06-16 06:26] LABS: A/G RATIO 0.65; ALANINE AMINOTRANSFERASE,ALT 42.0 U/L (14-59); ASPARTATE AMNIOTRANSFERASE,AST 18.0 U/L (15-37); BILIRUBIN TOTAL 1.6 mg/dL (0.2-1.0); BLOOD UREA NITROGEN,BUN 29.0 mg/dL (7-18); CARBON DIOXIDE,CO2 27.0 mmol/L (21-32); CHLORIDE,CL 102.0 mmol/L (98-107); CREATININE 1.41 mg/dL (0.55-1.02); EST CRCL DRUG DOSING (CG) 26.25 mL/min; ESTIMATED GFR 37.0 mL/min (>=60); GLUCOSE RANDOM 144.0 mg/dL (70-99); POTASSIUM,K 5.2 mmol/L (3.5-5.1); PROTEIN TOTAL,TP 5.6 g/dL (6.4-8.2); SODIUM,NA 137.0 mmol/L (136-145)
[2025-06-16] MEDS: methylPREDNISolone Sodium Succinate 40 MG/1 ML SDV IVPUSH SCH (07:20)
[2025-06-16] MEDS: Saccharomyces Boulardii (Probiotic) 250 MG Cap PO SCH (09:18)
[2025-06-16] MEDS: Cholecalciferol (Vitamin D3) 25 MCG Tab PO SCH (09:20)
[2025-06-16] MEDS: buPROPion 150 MG Tab.ER PO SCH (09:22)
[2025-06-16] MEDS: Vitamin B Complex Cap PO SCH (09:22)
[2025-06-16] MEDS: Venlafaxine 37.5 MG Cap.ER PO SCH ×2 (11:29→21:59)
[2025-06-16] MEDS: MEMANTINE HCL 21 MG PO SCH (11:30)
[2025-06-17 06:22] LABS: PLATELET COUNT,PLT 207 10^3/uL (150-450); RED BLOOD CELL COUNT 3.06 10^6/uL (4.2-5.4); WHITE BLOOD CELL COUNT,WBC 30.6 10^3/uL (5.0-10.0)
[2025-06-17 06:28] LABS: BASOPHILS PERCENT AUTO 0.2 % (0.0-1.0); EOSINOPHILS PERCENT AUTO 0.0 % (1.0-3.0); LYMPHOCYTES PERCENT AUTO 1.0 % (20.5-50.1); MONOCYTES PERCENT AUTO 2.0 % (2-8); NEUTROPHILS PERCENT AUTO 96.6 % (42.2-75.2)
[2025-06-17 06:51] LABS: ALANINE AMINOTRANSFERASE,ALT 14.0 U/L (14-59); ASPARTATE AMNIOTRANSFERASE,AST 14.0 U/L (15-37); BILIRUBIN TOTAL 1.0 mg/dL (0.2-1.0); BLOOD UREA NITROGEN,BUN 29.0 mg/dL (7-18); CARBON DIOXIDE,CO2 27.0 mmol/L (21-32); CHLORIDE,CL 106.0 mmol/L (98-107); CREATININE 1.25 mg/dL (0.55-1.02); EST CRCL DRUG DOSING (CG) 29.61 mL/min; GLUCOSE RANDOM 133.0 mg/dL (70-99); POTASSIUM,K 4.7 mmol/L (3.5-5.1); PROTEIN TOTAL,TP 5.5 g/dL (6.4-8.2); SODIUM,NA 138.0 mmol/L (136-145)
[2025-06-17 06:53] LABS: A/G RATIO 0.53; ESTIMATED GFR 42.0 mL/min (>=60)
[2025-06-17 07:15] LABS: BAND PERCENT MAN 10 %; LYMPHOCYTES PERCENT MAN 1 % (20-50); MONOCYTES PERCENT MAN 1 % (2-8); SEG NEUTROPHILS PERCENT MAN 88 % (42-75)
[2025-06-17] MEDS: methylPREDNISolone Sodium Succinate 40 MG/1 ML SDV IVPUSH SCH (09:49)
[2025-06-17] MEDS: hydrALAZINE 20 MG/ML SDV IVPUSH PRN (23:36)
[2025-06-18 06:25] LABS: BASOPHILS PERCENT AUTO 0.3 % (0.0-1.0); EOSINOPHILS PERCENT AUTO 0.0 % (1.0-3.0); LYMPHOCYTES PERCENT AUTO 1.5 % (20.5-50.1); MONOCYTES PERCENT AUTO 1.9 % (2-8); NEUTROPHILS PERCENT AUTO 96.3 % (42.2-75.2); PLATELET COUNT,PLT 217 10^3/uL (150-450); RED BLOOD CELL COUNT 3.01 10^6/uL (4.2-5.4); WHITE BLOOD CELL COUNT,WBC 20.1 10^3/uL (5.0-10.0)
[2025-06-18 06:49] LABS: ALANINE AMINOTRANSFERASE,ALT 18.0 U/L (14-59); ASPARTATE AMNIOTRANSFERASE,AST 13.0 U/L (15-37); BILIRUBIN TOTAL 0.6 mg/dL (0.2-1.0); BLOOD UREA NITROGEN,BUN 33.0 mg/dL (7-18); CARBON DIOXIDE,CO2 24.0 mmol/L (21-32); CHLORIDE,CL 107.0 mmol/L (98-107); CREATININE 1.18 mg/dL (0.55-1.02); EST CRCL DRUG DOSING (CG) 31.36 mL/min; GLUCOSE RANDOM 127.0 mg/dL (70-99); POTASSIUM,K 4.2 mmol/L (3.5-5.1); PROTEIN TOTAL,TP 5.6 g/dL (6.4-8.2); SODIUM,NA 140.0 mmol/L (136-145)
[2025-06-18 06:50] LABS: A/G RATIO 0.51; ESTIMATED GFR 45.0 mL/min (>=60)
[2025-06-18] MEDS: methylPREDNISolone Sodium Succinate 40 MG/1 ML SDV IVPUSH SCH (14:22)
[2025-06-19 06:26] LABS: BASOPHILS PERCENT AUTO 0.3 % (0.0-1.0); EOSINOPHILS PERCENT AUTO 0.0 % (1.0-3.0); LYMPHOCYTES PERCENT AUTO 2.2 % (20.5-50.1); MONOCYTES PERCENT AUTO 3.3 % (2-8); NEUTROPHILS PERCENT AUTO 94.2 % (42.2-75.2); PLATELET COUNT,PLT 215 10^3/uL (150-450); RED BLOOD CELL COUNT 2.89 10^6/uL (4.2-5.4); WHITE BLOOD CELL COUNT,WBC 14.7 10^3/uL (5.0-10.0)
[2025-06-19 06:52] LABS: ALANINE AMINOTRANSFERASE,ALT 10.0 U/L (14-59); ASPARTATE AMNIOTRANSFERASE,AST 13.0 U/L (15-37); BILIRUBIN TOTAL 0.5 mg/dL (0.2-1.0); BLOOD UREA NITROGEN,BUN 39.0 mg/dL (7-18); CARBON DIOXIDE,CO2 25.0 mmol/L (21-32); CHLORIDE,CL 108.0 mmol/L (98-107); CREATININE 1.26 mg/dL (0.55-1.02); EST CRCL DRUG DOSING (CG) 29.37 mL/min; GLUCOSE RANDOM 120.0 mg/dL (70-99); POTASSIUM,K 4.3 mmol/L (3.5-5.1); PROTEIN TOTAL,TP 5.4 g/dL (6.4-8.2); SODIUM,NA 141.0 mmol/L (136-145)
[2025-06-19 07:29] LABS: A/G RATIO 0.5; ESTIMATED GFR 42.0 mL/min (>=60)
[2025-06-20] MEDS: Sodium Chloride 0.9% 10 ML Syringe FLUSH PRN (05:50)
== END 2025-06-20 11:20 | DRG 871 ==
LOC: DL.ED 22:46 → DL.MS 06-16 01:16
PROVIDERS: ADMIT Internal Medicine; ATTEND Internal Medicine
DX: A41.9 Sepsis, unspecified organism (principal); G93.41 Metabolic encephalopathy; I11.0 Hypertensive heart disease with heart failure; J18.9 Pneumonia, unspecified organism; J44.9 Chronic obstructive pulmonary disease, unspecified; J96.01 Acute respiratory failure with hypoxia; J44.0 Chronic obstructive pulmonary disease with (acute) lower respiratory infection; I13.0 Hypertensive heart and chronic kidney disease with heart failure and stage 1 through stage 4 chronic kidney disease, or unspecified chronic kidney disease; J44.1 Chronic obstructive pulmonary disease with (acute) exacerbation; E87.20 Acidosis, unspecified; N18.4 Chronic kidney disease, stage 4 (severe); Z66 Do not resuscitate; I50.9 Heart failure, unspecified; I48.91 Unspecified atrial fibrillation; M81.0 Age-related osteoporosis without current pathological fracture; G20.A1 Parkinson's disease without dyskinesia, without mention of fluctuations; F43.12 Post-traumatic stress disorder, chronic; E03.9 Hypothyroidism, unspecified; E86.0 Dehydration; F32.9 Major depressive disorder, single episode, unspecified; F41.9 Anxiety disorder, unspecified; G47.00 Insomnia, unspecified; J43.9 Emphysema, unspecified; R53.1 Weakness; Z96.642 Presence of left artificial hip joint; K21.9 Gastro-esophageal reflux disease without esophagitis; R73.9 Hyperglycemia, unspecified; E83.52 Hypercalcemia; F10.90 Alcohol use, unspecified, uncomplicated; Z88.8 Allergy status to other drugs, medicaments and biological substances; Z79.82 Long term (current) use of aspirin; Z79.899 Other long term (current) drug therapy; Z90.49 Acquired absence of other specified parts of digestive tract; Z87.891 Personal history of nicotine dependence; Z98.890 Other specified postprocedural states; Z68.23 Body mass index [BMI] 23.0-23.9, adult; Z98.49 Cataract extraction status, unspecified eye
CPT/HCPCS: 36415; 71045; 71275; 80053; 82803; 83605; 83690; 83735; 83880; 84145; 84439; 84443; 84484; 85025; 86140; 87040 ×2; 93005; 96361; 96365; 96375; 99285; J1956; J3490; J7030; Q9967; 80202; 87428-QW; 93010; 94010; 94640; 94664; 94667; A9270-GY; J0360; J0692; J1100; J1171; J1650; J2470; J2919; J3373; J7050